=== PATIENT | female | born 1950 | race Caucasian/White ===

== ENCOUNTER → 2016-12-01 | Outpatient (CLI) | payer BC ==
[~2016-12-01] MED LIST: ASPIRIN81 MG PO; COMBIVENT0.074 GM/I INH; INVANZ 1 GM VIAL1 GM IM; MEDROL DOSEPAK 24 MG PO; PROVENTIL HFA 61 INH INH; TESSALON PERLE100 MG PO; ZESTRIL/PRINIVI10 MG PO; ZOCOR 40 MG TAB40 MG PO
== END ==
LOC: KOH-I 13:46
DX: R06.02 Shortness of breath (principal); R91.8 Other nonspecific abnormal finding of lung field
CPT/HCPCS: 71020

== ENCOUNTER 2021-06-30 19:22 | Inpatient (IN) | payer OTHER ==
[~2021-06-30] VITALS: Ht 157.5 cm; Wt 65.1 kg
[2021-06-30 21:05] LABS: HEMOGLOBIN 14.4 gm/dl (12.3-15.3); RED BLOOD COUNT 4.56 M/UL (4.00-5.10); WHITE BLOOD COUNT 4.4 K/UL (4.5-11.0)
[2021-06-30 21:29] LABS: BUN/CREATININE RATIO 18 (0-10)
[2021-07-01 07:12] LABS: HEMOGLOBIN 13.8 gm/dl (12.3-15.3); RED BLOOD COUNT 4.4 M/UL (4.00-5.10)
[2021-07-02 07:55] LABS: HEMOGLOBIN 14.2 gm/dl (12.3-15.3); RED BLOOD COUNT 4.65 M/UL (4.00-5.10)
[2021-07-02 07:58] LABS: WHITE BLOOD COUNT 5.4 K/UL (4.5-11.0)
[2021-07-02 08:05] LABS: BUN/CREATININE RATIO 32 (0-10)
--- NOTE | 2021-07-02 10:52 | NUR ---
PATIENT ARRIVES ON FLOOR PER WITH [employer] STAFF. NADN. PATIENT ON AIRVO 60L AT 100%. NADN. WILL CONTINUE TO MONITOR
[2021-07-03 04:05] LABS: HEMOGLOBIN 13.7 gm/dl (12.3-15.3); RED BLOOD COUNT 4.36 M/UL (4.00-5.10)
[2021-07-03 04:24] LABS: BUN/CREATININE RATIO 36 (0-10)
[2021-07-04 04:08] LABS: BUN/CREATININE RATIO 43 (0-10)
[2021-07-04 04:12] LABS: HEMOGLOBIN 13.9 gm/dl (12.3-15.3); RED BLOOD COUNT 4.59 M/UL (4.00-5.10)
[2021-07-05 05:45] LABS: HEMOGLOBIN 14.5 gm/dl (12.3-15.3); RED BLOOD COUNT 4.61 M/UL (4.00-5.10)
[2021-07-05 05:54] LABS: WHITE BLOOD COUNT 9.9 K/UL (4.5-11.0)
[2021-07-05 06:00] LABS: BUN/CREATININE RATIO 45 (0-10)
[2021-07-06 06:16] LABS: HEMOGLOBIN 13.5 gm/dl (12.3-15.3); RED BLOOD COUNT 4.34 M/UL (4.00-5.10)
[2021-07-06 06:18] LABS: WHITE BLOOD COUNT 6.5 K/UL (4.5-11.0)
[2021-07-06 06:46] LABS: BUN/CREATININE RATIO 41 (0-10)
[2021-07-07 05:53] LABS: HEMOGLOBIN 13.1 gm/dl (12.3-15.3); RED BLOOD COUNT 4.2 M/UL (4.00-5.10)
[2021-07-07 06:45] LABS: BUN/CREATININE RATIO 40 (0-10)
[2021-07-08 05:11] LABS: HEMOGLOBIN 13.9 gm/dl (12.3-15.3); RED BLOOD COUNT 4.45 M/UL (4.00-5.10)
[2021-07-08 05:35] LABS: BUN/CREATININE RATIO 42 (0-10)
--- NOTE | 2021-07-08 12:18 | NUR ---
belongings which include gold colored wedding band sent home with Denny Nuñez.
[2021-07-09 05:28] LABS: RED BLOOD COUNT 4.47 M/UL (4.00-5.10); WHITE BLOOD COUNT 12.6 K/UL (4.5-11.0)
[2021-07-09 08:04] LABS: BUN/CREATININE RATIO 41 (0-10)
[2021-07-10 05:36] LABS: HEMOGLOBIN 13.7 gm/dl (12.3-15.3); RED BLOOD COUNT 4.36 M/UL (4.00-5.10); WHITE BLOOD COUNT 11.3 K/UL (4.5-11.0)
[2021-07-10 06:18] LABS: BUN/CREATININE RATIO 55 (0-10)
[2021-07-11 05:23] LABS: HEMOGLOBIN 13.7 gm/dl (12.3-15.3); RED BLOOD COUNT 4.33 M/UL (4.00-5.10)
[2021-07-11 05:26] LABS: WHITE BLOOD COUNT 15.4 K/UL (4.5-11.0)
[2021-07-11 05:53] LABS: BUN/CREATININE RATIO 54 (0-10)
[2021-07-12 05:30] LABS: HEMOGLOBIN 12.7 gm/dl (12.3-15.3); RED BLOOD COUNT 4.08 M/UL (4.00-5.10); WHITE BLOOD COUNT 12.2 K/UL (4.5-11.0)
[2021-07-12 05:52] LABS: BUN/CREATININE RATIO 51 (0-10)
--- NOTE | 2021-07-12 16:21 | NUR ---
NOTIFIED OF CT RESULTS. ORDER OBTAINED TO MOVE ETT BACK 3CM. RESPIRATORY THERAPY NOTFIED.
[2021-07-13 05:04] LABS: HEMOGLOBIN 14.2 gm/dl (12.3-15.3); WHITE BLOOD COUNT 11.7 K/UL (4.5-11.0)
[2021-07-13 05:21] LABS: RED BLOOD COUNT 4.59 M/UL (4.00-5.10)
[2021-07-13 05:32] LABS: BUN/CREATININE RATIO 74 (0-10)
--- NOTE | 2021-07-13 08:26 | NUR ---
SPOKE WITH AL ([id number]) AFTER HE SPOKE WITH DR. 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 HE IS GOING TO SPEAK WITH HER SISTERS AND COME TO THE HOSPITAL TO DISCUSS THIS FURTHER.
--- NOTE | 2021-07-14 13:42 | NUR ---
THE PATIENTS HONEY LEIGH CAME BY AND DISCUSSED THE OPTIONS OF TRACH/PEG AND COMFORT CARE WITH DR. BARRIOS. AFTER ALSO SPEAKING WITH THE PATIENTS SISTERS AND NIECE THE FAMILY HAD DECIDED THAT IT WOULD BE AGAINST MRS. OJEDA WISHES TO MOVE FORWARD WITH A TRACH AT THIS TIME AND THEY ARE REQUESTING THAT SHE BE MADE COMFORT MEASURES AND THAT WE MOVE FORWARD WITH TERMINAL WEANING AT THIS TIME. JB HAS BEEN NOTIFIED PER PROT[employer] AND DR. ABRAHAM AND DR. BARRIOS HAVE BEEN NOTIFIED.
--- NOTE | 2021-07-14 18:53 | NUR ---
PER FAMILY REQUEST AND MD ORDER PT EXTUBATED TO NON-REBREATHER. MONITORING EQUIPTMENT REMAINS ON AND FAMILY ALLOWED AT BEDSIDE. AT THIS TIME VSS. WILL CONTINUE TO MONITOR.
--- NOTE | 2021-07-15 16:56 | NUR ---
REPORT CALLED TO HENRI ESPINOSA. PT REMAINS STABLE AT THIS TIME. CONTINUEING WITH COMFORT MEASURES PER ORDER/FAMILY WISHES.
== END 2021-07-16 04:05 | disposition expired | DRG 207 ==
LOC: ER1 19:22 → CDU 07-01 00:08 → MED SURG 4 07-01 01:45 → CCU 07-01 01:45 → CDU 07-01 01:45 → MED SURG 4 07-01 03:42 → PROG CARE 07-02 10:23 → CCU 07-04 13:18
PROVIDERS: Emergency Medicine; Internal Medicine; Internal Medicine Pulmonary Disease; ADMIT Internal Medicine
PROC: XW033E5 Introduction of Remdesivir Anti-infective into Peripheral Vein, Percutaneous Approach, New Technology Group 5 (ICD-10-PCS; 2021-07-01)
PROC: 8E0ZXY6 Isolation (ICD-10-PCS; 2021-07-01)
PROC: 5A0945A Assistance with Respiratory Ventilation, 24-96 Consecutive Hours, High Flow/Velocity Cannula (ICD-10-PCS; principal; 2021-07-02)
PROC: 5A1955Z Respiratory Ventilation, Greater than 96 Consecutive Hours (ICD-10-PCS; 2021-07-04)
PROC: 0BH17EZ Insertion of Endotracheal Airway into Trachea, Via Natural or Artificial Opening (ICD-10-PCS; 2021-07-04)
PROC: 02HV33Z Insertion of Infusion Device into Superior Vena Cava, Percutaneous Approach (ICD-10-PCS; 2021-07-04)
PROC: B548ZZA Ultrasonography of Superior Vena Cava, Guidance (ICD-10-PCS; 2021-07-04)
PROC: 02HV33Z Insertion of Infusion Device into Superior Vena Cava, Percutaneous Approach (ICD-10-PCS; 2021-07-04)
PROC: B548ZZA Ultrasonography of Superior Vena Cava, Guidance (ICD-10-PCS; 2021-07-04)
PROC: 3E033XZ Introduction of Vasopressor into Peripheral Vein, Percutaneous Approach (ICD-10-PCS; 2021-07-04)
PROC: 03HY32Z Insertion of Monitoring Device into Upper Artery, Percutaneous Approach (ICD-10-PCS; 2021-07-04)
PROC: B34HZZZ Ultrasonography of Right Upper Extremity Arteries (ICD-10-PCS; 2021-07-04)
PROC: XW0DXM6 Introduction of Baricitinib into Mouth and Pharynx, External Approach, New Technology Group 6 (ICD-10-PCS; 2021-07-05)
PROC: 3E0333Z Introduction of Anti-inflammatory into Peripheral Vein, Percutaneous Approach (ICD-10-PCS; 2021-07-08)
DX: U07.1 COVID-19 (principal); J12.82 Pneumonia due to coronavirus disease 2019; A41.9 Sepsis, unspecified organism; J80 Acute respiratory distress syndrome; Z51.5 Encounter for palliative care; Z66 Do not resuscitate; R65.20 Severe sepsis without septic shock; J69.0 Pneumonitis due to inhalation of food and vomit; G93.41 Metabolic encephalopathy; Z99.11 Dependence on respirator [ventilator] status; N39.0 Urinary tract infection, site not specified; E11.65 Type 2 diabetes mellitus with hyperglycemia; S60.415A Abrasion of left ring finger, initial encounter; T38.0X5A Adverse effect of glucocorticoids and synthetic analogues, initial encounter; E86.0 Dehydration; B96.20 Unspecified Escherichia coli [E. coli] as the cause of diseases classified elsewhere; X58.XXXA Exposure to other specified factors, initial encounter; B96.5 Pseudomonas (aeruginosa) (mallei) (pseudomallei) as the cause of diseases classified elsewhere; F41.9 Anxiety disorder, unspecified; E87.6 Hypokalemia; S00.31XA Abrasion of nose, initial encounter; E86.1 Hypovolemia; I10 Essential (primary) hypertension; E78.5 Hyperlipidemia, unspecified; E87.70 Fluid overload, unspecified; Z88.6 Allergy status to analgesic agent; Z88.1 Allergy status to other antibiotic agents; Z88.5 Allergy status to narcotic agent; Z88.2 Allergy status to sulfonamides; Z88.8 Allergy status to other drugs, medicaments and biological substances; Z79.4 Long term (current) use of insulin; Z82.3 Family history of stroke; Z82.49 Family history of ischemic heart disease and other diseases of the circulatory system; Z23 Encounter for immunization
CPT/HCPCS: 0240U; 31500; 36415; 36600; 70450; 71045; 80048; 80053; 81001; 82550; 82553; 82728; 82803; 82962; 83605; 83735; 83874; 83880; 84100; 84484; 85025; 85379; 86140; 87077; 87086; 87186; 93005; 94002; 94003; 94760; 99285; C1751; J1120; J1205; J1265; J1335; J1650; J1940; J2060; J2185; J2250; J2270; J2310; J2704; J2920; J3010; J3480; J3486; J7030; J7050; Q9967